=== PATIENT | male | born 1950 | race Caucasian/White ===

== ENCOUNTER 2018-12-20 03:29 | Emergency (ER) | payer OTHER, MEDICARE ==
[2018-12-20 03:36] VITALS: BP 139/87
[2018-12-20] MEDS ORDERED: CEPHALEXIN 500MG PREPACK#4 BTL TAKEHOME ONE (04:06)
[2018-12-20] MEDS ORDERED: CEPHALEXIN 500 MG CAP PO ONE (04:06)
[2018-12-20] MEDS ORDERED: ACETAMINOPHEN 500 MG TAB PO ONE (04:07)
[2018-12-20] MEDS ORDERED: IBUPROFEN 200 MG TAB PO ONE (04:07)
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
== END 2018-12-20 04:24 | disposition home or self-care (01) ==
DX: M79.605 Pain in left leg (principal); S80.812A Abrasion, left lower leg, initial encounter; L98.9 Disorder of the skin and subcutaneous tissue, unspecified